=== PATIENT | female | born 1945 | race Caucasian/White ===

== ENCOUNTER 2019-01-20 16:11 | Inpatient (IN) | payer MEDICARE, BC ==
[~2019-01-20] VITALS: Ht 160 cm; Wt 56.7 kg
--- NOTE | 2019-01-20 16:49 | NUR ---
C/O INCREASED SOB X4 DAYS. HAS BEEN USING HER NEBULIZER AND INHALERS W/O RELIEF. HX COPD. CONNECTED TO MONITORING. AT BEDSIDE. CALL LIGHT IN REACH.
[2019-01-20 17:10] LABS: ALBUMIN 3.7 g/dL (3.4-5.0); ANION GAP 5 mmol/L (5-15); CALCIUM 8.3 mg/dL (8.5-10.1); CHLORIDE 100 mmol/L (98-107); CREATININE 0.61 mg/dL (0.55-1.02)
[2019-01-20 17:12] LABS: BASOPHILS # (AUTO) 0.02 x10^3/uL (0-0.1); BASOPHILS % (AUTO) 1 % (0-1); EOSINOPHILS # (AUTO) 0.01 x10^3/uL (0-0.4); EOSINOPHILS % (AUTO) 0 % (1-7); LYMPHOCYTES # (AUTO) 0.68 x10^3/uL (1-3.4); LYMPHOCYTES % (AUTO) 20 % (22-44); MD NO; MEAN CORPUSCULAR HEMOGLOBIN 31.5 pg (27.0-34.8); MEAN CORPUSCULAR HGB CONC 33.3 g/dL (32.4-35.8); MEAN CORPUSCULAR VOLUME 94.9 fL (80-100); MEAN PLATELET VOLUME 8.3 fL (7.4-10.4); MONOCYTES # (AUTO) 0.47 x10^3/uL (0.2-0.8); MONOCYTES % (AUTO) 14 % (2-9); NEUTROPHILS % (AUTO) 65 % (42-75); PLATELET COUNT 201 x10^3/uL (130-400); RED BLOOD COUNT 4.68 x10^6/uL (3.82-5.3); RED CELL DISTRIBUTION WIDTH 13.9 % (9.6-15.2)
--- NOTE | 2019-01-20 17:21 | NUR ---
ALL RESULTS ARE BACK AT THIS TIME. CHART UP FOR RECHECK.
[2019-01-20] MEDS ORDERED: ACETAMINOPHEN 500 MG TABLET ONE (17:36)
--- NOTE | 2019-01-20 17:40 | NUR ---
MEDS ADMINISTERED PER MAY. PT RESTING COMFORTABLY ON [facility] [place]. [place].
[2019-01-20] MEDS ORDERED: ALBUTEROL/IPRATROPIUM 2.5MG/0.5MG, 3 ML NPPB ONE (18:00)
[2019-01-20] MEDS ORDERED: SODIUM CHLORIDE 0.9% 1,000ML IVBOLUS ONE (18:00)
[2019-01-20] MEDS ORDERED: ACETAMINOPHEN 500 MG TABLET PO ONE (18:00)
[2019-01-20] MEDS ORDERED: ALBUTEROL/IPRATROPIUM 2.5MG/0.5MG, 3 ML ONE (18:19)
--- NOTE | 2019-01-20 18:21 | NUR ---
TASK RN: STARTING PIV NOW, MEDICATING PT PER EMAR. RT AT BEDSIDE. CONNECTED TO MONITOR. VSS.
[2019-01-20 19:15] LABS: RAPID INFLUENZA A Negative (Negative); RAPID INFLUENZA B POSITIVE (Negative)
--- NOTE | 2019-01-20 19:32 | NUR ---
PT STATES SHE IS TOO SOB TO AMBULATED TO RESTROOM, SO SHE WAS WHEELED TO RESTROOM AND BACK TO BED. OXYGEN LEVELS AT 95%.
--- NOTE | 2019-01-20 19:55 | NUR ---
REPORT GIVEN TO LIVIA MACE
[2019-01-20] MEDS ORDERED: ONDANSETRON 2MG/ML, 2ML IVPush ONE (20:00)
[2019-01-20] MEDS ORDERED: SODIUM CHLORIDE 0.9%, 500ML IVBOLUS ONE (20:00)
[2019-01-20] MEDS ORDERED: OSELTAMIVIR 75 MG CAPSULE PO ONE (20:00)
[2019-01-20 20:29] VITALS: BP 120/69
[2019-01-20] MEDS ORDERED: ONDANSETRON ODT 4 MG PO PRN (20:30)
[2019-01-20] MEDS ORDERED: TEMAZEPAM 15 MG CAPSULE PO PRN (20:30)
[2019-01-20] MEDS ORDERED: DOCUSATE 100 MG CAPSULE PO PRN (20:30)
[2019-01-20] MEDS ORDERED: ENALAPRILAT 1.25 MG/ML, 2ML IVPush PRN (20:30)
[2019-01-20] MEDS ORDERED: ENOXAPARIN 40 MG/0.4 ML SQ SCH (20:30)
[2019-01-20] MEDS ORDERED: LIDODERM 5% PATCH TD PRN (20:30)
[2019-01-20] MEDS ORDERED: ACETAMINOPHEN 325 MG TABLET PO PRN (20:30)
[2019-01-20 20:31] VITALS: BP 120/69
[2019-01-20] MEDS ORDERED: ALBUTEROL/IPRATROPIUM 2.5MG/0.5MG, 3 ML NPPB PRN (22:00)
[2019-01-20] MEDS ORDERED: MONT10TA6 PO (22:03)
[2019-01-20] MEDS ORDERED: DESL5TAB PO (22:04)
[2019-01-20] MEDS ORDERED: PRAV40TA2 PO (22:04)
[2019-01-20] MEDS ORDERED: CLON0.5T PO (22:05)
[2019-01-20] MEDS ORDERED: ALPR0.25 PO (22:07)
[2019-01-20] MEDS ORDERED: ASPI-515 PO (22:08)
[2019-01-20] MEDS ORDERED: LEVA15HF4 INH (22:10)
[2019-01-20] MEDS ORDERED: LEVALBUTEROL TARTRATE 45 MCG INH SCH (23:00)
[2019-01-20] MEDS: ASPIRIN 81 MG TABLET EC PO SCH (23:13)
[2019-01-20] MEDS: OSELTAMIVIR 75 MG CAPSULE PO SCH (23:14)
[2019-01-20] MEDS: PRAVASTATIN 40 MG TABLET PO SCH (23:14)
[2019-01-20] MEDS: MONTELUKAST 10 MG TABLET PO SCH (23:14)
[2019-01-20] MEDS: LORATADINE 10 MG TABLET PO SCH (23:17)
[2019-01-20] MEDS: ALBUTEROL/IPRATROPIUM 2.5MG/0.5MG, 3 ML NPPB SCH (23:50)
[2019-01-21 01:49] VITALS: BP 105/67
[2019-01-21 06:28] LABS: MEAN CORPUSCULAR HEMOGLOBIN 30.9 pg (27.0-34.8); MEAN CORPUSCULAR HGB CONC 33.1 g/dL (32.4-35.8); MEAN CORPUSCULAR VOLUME 93.4 fL (80-100); MEAN PLATELET VOLUME 8.1 fL (7.4-10.4); PLATELET COUNT 183 x10^3/uL (130-400); RED BLOOD COUNT 4.48 x10^6/uL (3.82-5.3); RED CELL DISTRIBUTION WIDTH 13.2 % (9.6-15.2)
[2019-01-21 06:37] LABS: CALCIUM 8.2 mg/dL (8.5-10.1); CHLORIDE 105 mmol/L (98-107)
[2019-01-21 06:40] LABS: ANION GAP 4 mmol/L (5-15); CREATININE 0.54 mg/dL (0.55-1.02)
[2019-01-21 06:58] LABS: BASOPHILS # (AUTO) 0.01 x10^3/uL (0-0.1); BASOPHILS % (AUTO) 0 % (0-1); EOSINOPHILS % (AUTO) 0 % (1-7); LYMPHOCYTES % (AUTO) 30 % (22-44); MD SCAN; MONOCYTES # (AUTO) 0.28 x10^3/uL (0.2-0.8); MONOCYTES % (AUTO) 14 % (2-9); NEUTROPHILS % (AUTO) 56 % (42-75)
[2019-01-21 07:56] VITALS: BP 109/72
[2019-01-21] MEDS ORDERED: LIDODERM REMOVE PATCH NOTE XX SCH (08:30)
[2019-01-21] MEDS: ALBUTEROL/IPRATROPIUM 2.5MG/0.5MG, 3 ML NPPB SCH ×2 (08:53→14:35)
[2019-01-21] MEDS: BUDESONIDE 0.5 MG/2 ML INHA NPPB SCH (09:00)
[2019-01-21] MEDS ORDERED: OSELTAMIVIR 75 MG CAPSULE PO SCH (09:00)
[2019-01-21] MEDS: SODIUM CHLORIDE 0.9% 1,000 ML IV SCH (09:25)
[2019-01-21] MEDS: ASPIRIN 81 MG TABLET EC PO SCH ×2 (09:25→21:17)
[2019-01-21] MEDS: OSELTAMIVIR 75 MG CAPSULE PO SCH ×2 (09:25→21:17)
[2019-01-21] MEDS: HEPARIN 5,000 UNITS/ML, 1ML SQ SCH ×2 (09:28→21:17)
[2019-01-21] MEDS: GUAIFENESIN 200 MG TABLET PO SCH ×3 (12:24→21:17)
[2019-01-21 16:18] VITALS: BP 120/77
[2019-01-21] MEDS ORDERED: HALOPERIDOL 2 MG TABLET PO ONE (18:00)
[2019-01-21] MEDS: NICOTINE 7 MG/24 HR PATCH.TD24 TD SCH (18:03)
[2019-01-21 19:48] VITALS: BP 124/76
[2019-01-21] MEDS: PRAVASTATIN 40 MG TABLET PO SCH (21:16)
[2019-01-21] MEDS: LORATADINE 10 MG TABLET PO SCH (21:17)
[2019-01-21] MEDS: MONTELUKAST 10 MG TABLET PO SCH (21:17)
[2019-01-21 21:25] LABS: CLOSTRIDIUM DIFFICILE ANTIGEN NEGATIVE; CLOSTRIDIUM DIFFICILE TOXIN NEGATIVE (Negative)
[2019-01-21] MEDS: ACETAMINOPHEN 325 MG TABLET PO PRN (23:36)
[2019-01-22] MEDS: SODIUM CHLORIDE 0.9% 1,000 ML IV SCH (02:56)
[2019-01-22] MEDS: IPRATROPIUM 0.5 MG/2.5 ML INHA NPPB SCH ×4 (03:00→19:43)
[2019-01-22 03:09] VITALS: BP 133/84
[2019-01-22] MEDS: GUAIFENESIN 200 MG TABLET PO SCH ×4 (06:00→21:26)
[2019-01-22] MEDS: BUDESONIDE 0.5 MG/2 ML INHA NPPB SCH ×3 (07:48→19:44)
[2019-01-22] MEDS ORDERED: HALOPERIDOL 2 MG TABLET PO PRN (09:00)
[2019-01-22 09:21] VITALS: BP 135/82
[2019-01-22] MEDS: CARVEDILOL 3.125 MG TABLET PO SCH ×2 (09:36→17:56)
[2019-01-22] MEDS: ASPIRIN 81 MG TABLET EC PO SCH ×2 (09:37→21:27)
[2019-01-22] MEDS: HEPARIN 5,000 UNITS/ML, 1ML SQ SCH ×2 (09:37→21:25)
[2019-01-22] MEDS: OSELTAMIVIR 75 MG CAPSULE PO SCH ×2 (09:37→21:26)
[2019-01-22] MEDS: ACETAMINOPHEN 325 MG TABLET PO PRN ×2 (10:53→22:00)
[2019-01-22] MEDS ORDERED: TIOT18CA INH (11:01)
[2019-01-22 13:54] VITALS: BP 184/99
[2019-01-22] MEDS: CEFTRIAXONE PMX 2GM/50ML 50 ML IV SCH (14:03)
[2019-01-22] MEDS: NICOTINE 7 MG/24 HR PATCH.TD24 TD SCH (17:57)
[2019-01-22 20:21] VITALS: BP 154/83
[2019-01-22] MEDS: PRAVASTATIN 40 MG TABLET PO SCH (21:26)
[2019-01-22] MEDS: MONTELUKAST 10 MG TABLET PO SCH (21:26)
[2019-01-22] MEDS: LORATADINE 10 MG TABLET PO SCH (21:26)
[2019-01-23] MEDS: SODIUM CHLORIDE 0.9% 1,000 ML IV SCH (00:04)
[2019-01-23 01:59] VITALS: BP 151/78
[2019-01-23] MEDS: IPRATROPIUM 0.5 MG/2.5 ML INHA NPPB SCH ×5 (02:22→21:52)
[2019-01-23 05:22] LABS: ANION GAP 7 mmol/L (5-15); CALCIUM 7.5 mg/dL (8.5-10.1); CHLORIDE 97 mmol/L (98-107); CREATININE 0.39 mg/dL (0.55-1.02)
[2019-01-23 05:46] VITALS: BP 149/80
[2019-01-23] MEDS: GUAIFENESIN 200 MG TABLET PO SCH ×6 (05:50→20:33)
[2019-01-23] MEDS: CARVEDILOL 3.125 MG TABLET PO SCH (05:50)
[2019-01-23] MEDS: ACETAMINOPHEN 325 MG TABLET PO PRN ×2 (06:13→20:32)
[2019-01-23] MEDS: BUDESONIDE 0.5 MG/2 ML INHA NPPB SCH ×2 (06:16→21:00)
[2019-01-23 06:24] VITALS: BP 119/75
[2019-01-23] MEDS: HEPARIN 5,000 UNITS/ML, 1ML SQ SCH ×2 (08:55→20:32)
[2019-01-23] MEDS: ASPIRIN 81 MG TABLET EC PO SCH ×2 (08:55→20:29)
[2019-01-23] MEDS: OSELTAMIVIR 75 MG CAPSULE PO SCH ×2 (08:55→20:30)
[2019-01-23] MEDS: DOXYCYCLINE 100MG TABLET PO SCH ×2 (09:30→20:32)
[2019-01-23] MEDS: CEFTRIAXONE PMX 2GM/50ML 50 ML IV SCH (14:06)
[2019-01-23 14:10] VITALS: BP 105/68
[2019-01-23] MEDS: LEVALBUTEROL 1.25 MG NPPB PRN (14:58)
[2019-01-23] MEDS: ALBUTEROL/IPRATROPIUM 2.5MG/0.5MG, 3 ML HHN SCH ×2 (16:30→22:30)
[2019-01-23 18:30] VITALS: BP 146/78
[2019-01-23] MEDS: NICOTINE 7 MG/24 HR PATCH.TD24 TD SCH (18:33)
[2019-01-23] MEDS: CARVEDILOL 6.25 MG TABLET PO SCH (18:33)
[2019-01-23] MEDS: MONTELUKAST 10 MG TABLET PO SCH (20:30)
[2019-01-23] MEDS: LORATADINE 10 MG TABLET PO SCH (20:30)
[2019-01-23] MEDS: PRAVASTATIN 40 MG TABLET PO SCH (20:30)
[2019-01-24 03:13] VITALS: BP 133/83
[2019-01-24] MEDS: ALBUTEROL/IPRATROPIUM 2.5MG/0.5MG, 3 ML HHN SCH ×4 (04:24→22:30)
[2019-01-24 06:11] LABS: BASOPHILS # (AUTO) 0.01 x10^3/uL (0-0.1); BASOPHILS % (AUTO) 0 % (0-1); EOSINOPHILS # (AUTO) 0.04 x10^3/uL (0-0.4); EOSINOPHILS % (AUTO) 1 % (1-7); LYMPHOCYTES # (AUTO) 0.85 x10^3/uL (1-3.4); LYMPHOCYTES % (AUTO) 15 % (22-44); MD NO; MEAN CORPUSCULAR HEMOGLOBIN 31.3 pg (27.0-34.8); MEAN CORPUSCULAR HGB CONC 33.1 g/dL (32.4-35.8); MEAN CORPUSCULAR VOLUME 94.6 fL (80-100); MEAN PLATELET VOLUME 8.1 fL (7.4-10.4); MONOCYTES # (AUTO) 0.62 x10^3/uL (0.2-0.8); MONOCYTES % (AUTO) 11 % (2-9); NEUTROPHILS % (AUTO) 74 % (42-75); PLATELET COUNT 160 x10^3/uL (130-400); RED CELL DISTRIBUTION WIDTH 13.4 % (9.6-15.2)
[2019-01-24 06:34] VITALS: BP 115/64
[2019-01-24] MEDS: BUDESONIDE 0.5 MG/2 ML INHA NPPB SCH ×2 (09:30→20:46)
[2019-01-24] MEDS: IPRATROPIUM 0.5 MG/2.5 ML INHA NPPB SCH ×3 (09:30→20:46)
[2019-01-24] MEDS: OSELTAMIVIR 75 MG CAPSULE PO SCH ×2 (09:58→21:54)
[2019-01-24] MEDS ORDERED: BUDE10.2 INH (10:06)
[2019-01-24] MEDS ORDERED: TIOT18CA INH (10:06)
[2019-01-24] MEDS: CARVEDILOL 6.25 MG TABLET PO SCH ×2 (10:53→17:50)
[2019-01-24] MEDS: GUAIFENESIN 200 MG TABLET PO SCH ×5 (10:53→21:54)
[2019-01-24] MEDS: ASPIRIN 81 MG TABLET EC PO SCH ×2 (10:53→21:53)
[2019-01-24] MEDS: DOXYCYCLINE 100MG TABLET PO SCH ×2 (10:53→21:00)
[2019-01-24] MEDS: HEPARIN 5,000 UNITS/ML, 1ML SQ SCH ×2 (10:54→21:53)
[2019-01-24] MEDS: LEVALBUTEROL 1.25 MG NPPB PRN ×2 (11:25→15:58)
[2019-01-24] MEDS: NYSTATIN 500,000 UNITS/5 ML UDC PO SCH ×3 (12:31→21:00)
[2019-01-24] MEDS: CEFTRIAXONE PMX 2GM/50ML 50 ML IV SCH (12:32)
[2019-01-24 12:51] VITALS: BP 124/81
[2019-01-24] MEDS: NICOTINE 7 MG/24 HR PATCH.TD24 TD SCH (17:48)
[2019-01-24 18:46] VITALS: BP 119/70
[2019-01-24] MEDS: PRAVASTATIN 40 MG TABLET PO SCH (21:54)
[2019-01-24] MEDS: MONTELUKAST 10 MG TABLET PO SCH (21:54)
[2019-01-24] MEDS: LORATADINE 10 MG TABLET PO SCH (21:54)
[2019-01-24] MEDS: ACETAMINOPHEN 325 MG TABLET PO PRN (22:12)
[2019-01-25 00:21] VITALS: BP 119/76
[2019-01-25] MEDS: ALBUTEROL/IPRATROPIUM 2.5MG/0.5MG, 3 ML HHN SCH (02:59)
[2019-01-25] MEDS: NYSTATIN 500,000 UNITS/5 ML UDC PO SCH ×4 (04:16→21:00)
[2019-01-25] MEDS: DOXYCYCLINE 100MG TABLET PO SCH ×2 (04:16→21:00)
[2019-01-25 07:42] VITALS: BP 183/99
[2019-01-25 07:57] VITALS: BP 151/97
[2019-01-25] MEDS: BUDESONIDE 0.5 MG/2 ML INHA NPPB SCH (08:25)
[2019-01-25] MEDS: IPRATROPIUM 0.5 MG/2.5 ML INHA NPPB SCH ×3 (08:25→21:00)
[2019-01-25] MEDS: ENOXAPARIN 40 MG/0.4 ML SQ SCH (11:34)
[2019-01-25] MEDS: OSELTAMIVIR 75 MG CAPSULE PO SCH ×2 (11:34→21:00)
[2019-01-25] MEDS: AMLODIPINE 5 MG TABLET PO SCH ×2 (11:34→22:50)
[2019-01-25] MEDS: GUAIFENESIN 200 MG TABLET PO SCH ×4 (11:37→21:00)
[2019-01-25] MEDS: ASPIRIN 81 MG TABLET EC PO SCH ×2 (12:18→22:50)
[2019-01-25 12:46] VITALS: BP 153/93
[2019-01-25] MEDS: CEFTRIAXONE PMX 2GM/50ML 50 ML IV SCH (13:58)
[2019-01-25] MEDS ORDERED: CARVEDILOL 12.5 MG TABLET PO SCH (18:00)
[2019-01-25] MEDS: NICOTINE 7 MG/24 HR PATCH.TD24 TD SCH (18:20)
[2019-01-25 20:00] VITALS: BP 134/87
[2019-01-25] MEDS: MONTELUKAST 10 MG TABLET PO SCH (21:00)
[2019-01-25] MEDS: LORATADINE 10 MG TABLET PO SCH (22:50)
[2019-01-25] MEDS: PRAVASTATIN 40 MG TABLET PO SCH (22:50)
[2019-01-26] MEDS ORDERED: OMNIPAQUE 350 MG/ML, 100ML BOTTLE ONE (00:09)
[2019-01-26] MEDS: ACETAMINOPHEN 325 MG TABLET PO PRN ×2 (00:43→10:24)
[2019-01-26] MEDS: IPRATROPIUM 0.5 MG/2.5 ML INHA NPPB SCH ×4 (03:00→21:36)
[2019-01-26] MEDS: NYSTATIN 500,000 UNITS/5 ML UDC PO SCH ×4 (03:03→21:00)
[2019-01-26] MEDS: DOXYCYCLINE 100MG TABLET PO SCH ×2 (10:03→20:33)
[2019-01-26 10:20] VITALS: BP 146/83
[2019-01-26] MEDS: ENOXAPARIN 40 MG/0.4 ML SQ SCH (10:24)
[2019-01-26] MEDS: CEFDINIR 300 MG CAPSULE PO SCH ×2 (10:24→22:54)
[2019-01-26] MEDS: AMLODIPINE 5 MG TABLET PO SCH ×2 (10:24→22:53)
[2019-01-26] MEDS: GUAIFENESIN 200 MG TABLET PO SCH ×4 (10:24→21:00)
[2019-01-26] MEDS: ASPIRIN 81 MG TABLET EC PO SCH ×2 (10:24→22:53)
[2019-01-26 10:47] LABS: ALANINE AMINOTRANSFERASE 89 U/L (12-78); ALBUMIN 2.9 g/dL (3.4-5.0); CALCIUM 8.6 mg/dL (8.5-10.1); CHLORIDE 99 mmol/L (98-107); CREATININE 0.32 mg/dL (0.55-1.02)
[2019-01-26 10:49] LABS: ALKALINE PHOSPHATASE 74 U/L (45-117); BILIRUBIN,TOTAL 0.4 mg/dL (0.2-1.0)
[2019-01-26 10:59] LABS: ANION GAP 3 mmol/L (5-15)
[2019-01-26] MEDS: [UNRECOGNIZED DRUG - OTHER] NPPB SCH (17:00)
[2019-01-26] MEDS: NICOTINE 7 MG/24 HR PATCH.TD24 TD SCH (17:42)
[2019-01-26] MEDS: CARVEDILOL 25 MG TABLET PO SCH (17:42)
[2019-01-26 21:30] VITALS: BP 94/59
[2019-01-26] MEDS: MONTELUKAST 10 MG TABLET PO SCH (22:53)
[2019-01-26] MEDS: PRAVASTATIN 40 MG TABLET PO SCH (22:54)
[2019-01-26] MEDS: LORATADINE 10 MG TABLET PO SCH (22:54)
[2019-01-26] MEDS: MIRTAZAPINE 15 MG TABLET PO SCH (22:54)
[2019-01-27] MEDS: IPRATROPIUM 0.5 MG/2.5 ML INHA NPPB SCH ×4 (03:13→21:00)
[2019-01-27] MEDS: [UNRECOGNIZED DRUG - OTHER] NPPB SCH ×4 (03:13→18:30)
[2019-01-27 08:50] VITALS: BP 128/81
[2019-01-27] MEDS: NYSTATIN 500,000 UNITS/5 ML UDC PO SCH ×5 (09:52→21:28)
[2019-01-27] MEDS: DOXYCYCLINE 100MG TABLET PO SCH ×2 (09:52→20:45)
[2019-01-27] MEDS: AMLODIPINE 5 MG TABLET PO SCH (09:55)
[2019-01-27] MEDS: CEFDINIR 300 MG CAPSULE PO SCH ×2 (09:55→21:53)
[2019-01-27] MEDS: ASPIRIN 81 MG TABLET EC PO SCH ×2 (09:56→21:54)
[2019-01-27] MEDS: GUAIFENESIN 200 MG TABLET PO SCH ×4 (09:56→20:43)
[2019-01-27] MEDS: CARVEDILOL 25 MG TABLET PO SCH (09:56)
[2019-01-27] MEDS: ENOXAPARIN 40 MG/0.4 ML SQ SCH (10:00)
[2019-01-27 11:09] LABS: ALANINE AMINOTRANSFERASE 91 U/L (12-78); ALBUMIN 2.9 g/dL (3.4-5.0); CALCIUM 8.7 mg/dL (8.5-10.1); CREATININE 0.52 mg/dL (0.55-1.02)
[2019-01-27 11:11] LABS: ALKALINE PHOSPHATASE 80 U/L (45-117); BILIRUBIN,TOTAL 0.3 mg/dL (0.2-1.0); TOTAL PROTEIN 6.8 g/dL (6.4-8.2)
[2019-01-27 11:21] LABS: ANION GAP 2 mmol/L (5-15); CHLORIDE 99 mmol/L (98-107)
[2019-01-27 12:11] VITALS: BP 78/54
[2019-01-27 12:30] VITALS: BP 95/61
[2019-01-27] MEDS ORDERED: SODIUM CHLORIDE 0.9% 1,000 ML IV SCH (12:30)
[2019-01-27 14:55] VITALS: BP 108/69
[2019-01-27] MEDS: CARVEDILOL 12.5 MG TABLET PO SCH (18:24)
[2019-01-27] MEDS: NICOTINE 7 MG/24 HR PATCH.TD24 TD SCH (18:25)
[2019-01-27] MEDS ORDERED: [UNRECOGNIZED DRUG - OTHER] PO PRN (18:30)
[2019-01-27 20:09] VITALS: BP 115/70
[2019-01-27] MEDS: [UNRECOGNIZED DRUG - OTHER] PO PRN (20:43)
[2019-01-27] MEDS: ACETAMINOPHEN 325 MG TABLET PO PRN (20:43)
[2019-01-27] MEDS: BUDESONIDE 0.5 MG/2 ML INHA INH SCH (21:00)
[2019-01-27] MEDS: MONTELUKAST 10 MG TABLET PO SCH (21:53)
[2019-01-27] MEDS: MIRTAZAPINE 15 MG TABLET PO SCH (21:53)
[2019-01-27] MEDS: LORATADINE 10 MG TABLET PO SCH (21:54)
[2019-01-27] MEDS: PRAVASTATIN 40 MG TABLET PO SCH (21:54)
[2019-01-28] MEDS: [UNRECOGNIZED DRUG - OTHER] NPPB SCH ×4 (03:00→20:34)
[2019-01-28] MEDS: IPRATROPIUM 0.5 MG/2.5 ML INHA NPPB SCH ×4 (03:00→20:34)
[2019-01-28 06:22] LABS: ANION GAP 5 mmol/L (5-15); CALCIUM 8.7 mg/dL (8.5-10.1); CHLORIDE 98 mmol/L (98-107)
[2019-01-28 06:25] LABS: ALANINE AMINOTRANSFERASE 82 U/L (12-78); ALKALINE PHOSPHATASE 80 U/L (45-117); BILIRUBIN,TOTAL 0.4 mg/dL (0.2-1.0)
[2019-01-28] MEDS: GUAIFENESIN 200 MG TABLET PO SCH ×4 (07:23→21:02)
[2019-01-28] MEDS: DOXYCYCLINE 100MG TABLET PO SCH ×2 (07:23→21:02)
[2019-01-28] MEDS: BUDESONIDE 0.5 MG/2 ML INHA INH SCH ×2 (09:00→20:34)
[2019-01-28] MEDS: NYSTATIN 500,000 UNITS/5 ML UDC PO SCH ×4 (09:27→23:27)
[2019-01-28 09:42] VITALS: BP 138/87
[2019-01-28] MEDS: CARVEDILOL 12.5 MG TABLET PO SCH ×2 (09:54→17:18)
[2019-01-28] MEDS: CEFDINIR 300 MG CAPSULE PO SCH ×2 (09:54→21:41)
[2019-01-28] MEDS: ASPIRIN 81 MG TABLET EC PO SCH ×2 (09:54→21:40)
[2019-01-28] MEDS: ENOXAPARIN 40 MG/0.4 ML SQ SCH (09:55)
[2019-01-28] MEDS: [UNRECOGNIZED DRUG - OTHER] PO PRN ×2 (09:59→21:42)
[2019-01-28 12:59] VITALS: BP 137/81
[2019-01-28] MEDS: ACETAMINOPHEN 325 MG TABLET PO PRN ×2 (13:36→21:50)
[2019-01-28] MEDS: NICOTINE 7 MG/24 HR PATCH.TD24 TD SCH (17:20)
[2019-01-28 19:19] VITALS: BP 119/75
[2019-01-28] MEDS: MIRTAZAPINE 15 MG TABLET PO SCH (21:41)
[2019-01-28] MEDS: LORATADINE 10 MG TABLET PO SCH (21:41)
[2019-01-28] MEDS: MONTELUKAST 10 MG TABLET PO SCH (21:41)
[2019-01-28] MEDS: PRAVASTATIN 40 MG TABLET PO SCH (21:41)
[2019-01-29] MEDS: [UNRECOGNIZED DRUG - OTHER] NPPB SCH ×4 (02:29→22:01)
[2019-01-29] MEDS: IPRATROPIUM 0.5 MG/2.5 ML INHA NPPB SCH ×4 (02:30→22:02)
[2019-01-29 06:35] VITALS: BP 145/84
[2019-01-29] MEDS: BUDESONIDE 0.5 MG/2 ML INHA INH SCH ×2 (09:00→22:01)
[2019-01-29 09:32] LABS: ALBUMIN 3.1 g/dL (3.4-5.0); ANION GAP 2 mmol/L (5-15); CALCIUM 8.8 mg/dL (8.5-10.1); CHLORIDE 98 mmol/L (98-107)
[2019-01-29 09:36] LABS: ALANINE AMINOTRANSFERASE 69 U/L (12-78); ALKALINE PHOSPHATASE 73 U/L (45-117); BILIRUBIN,TOTAL 0.5 mg/dL (0.2-1.0)
[2019-01-29] MEDS: [UNRECOGNIZED DRUG - OTHER] PO PRN ×3 (09:56→21:04)
[2019-01-29] MEDS: DOXYCYCLINE 100MG TABLET PO SCH ×2 (10:12→19:30)
[2019-01-29] MEDS: NYSTATIN 500,000 UNITS/5 ML UDC PO SCH ×4 (10:12→22:44)
[2019-01-29] MEDS: CEFDINIR 300 MG CAPSULE PO SCH ×2 (10:12→21:03)
[2019-01-29] MEDS: GUAIFENESIN 200 MG TABLET PO SCH ×4 (10:13→21:00)
[2019-01-29] MEDS: ASPIRIN 81 MG TABLET EC PO SCH ×2 (10:14→21:03)
[2019-01-29] MEDS: ENOXAPARIN 40 MG/0.4 ML SQ SCH (10:14)
[2019-01-29] MEDS ORDERED: POTASSIUM CHLORIDE 20 MEQ TAB.ER.PRT PO ONE (15:00)
[2019-01-29] MEDS ORDERED: FUROSEMIDE 20 MG/2 ML IV ONE (15:00)
[2019-01-29 15:55] VITALS: BP 131/77
[2019-01-29] MEDS: POTASSIUM CHLORIDE 20 MEQ TAB.ER.PRT PO SCH (16:21)
[2019-01-29] MEDS ORDERED: POTASSIUM CHLORIDE 20 MEQ TAB.ER.PRT PO SCH (17:00)
[2019-01-29] MEDS ORDERED: FUROSEMIDE 40 MG/4 ML IV SCH (17:00)
[2019-01-29 17:45] VITALS: BP 124/70
[2019-01-29] MEDS: CARVEDILOL 25 MG TABLET PO SCH (17:45)
[2019-01-29] MEDS: NICOTINE 7 MG/24 HR PATCH.TD24 TD SCH (17:45)
[2019-01-29 18:48] VITALS: BP 91/62
[2019-01-29] MEDS: LORATADINE 10 MG TABLET PO SCH (21:03)
[2019-01-29] MEDS: PRAVASTATIN 40 MG TABLET PO SCH (21:03)
[2019-01-29] MEDS: MONTELUKAST 10 MG TABLET PO SCH (21:03)
[2019-01-29] MEDS: MIRTAZAPINE 15 MG TABLET PO SCH (21:04)
[2019-01-30] MEDS: [UNRECOGNIZED DRUG - OTHER] NPPB SCH ×5 (03:17→23:15)
[2019-01-30] MEDS: IPRATROPIUM 0.5 MG/2.5 ML INHA NPPB SCH ×5 (03:17→23:15)
[2019-01-30 07:10] VITALS: BP 143/93
[2019-01-30] MEDS: POTASSIUM CHLORIDE 20 MEQ TAB.ER.PRT PO SCH ×2 (07:15→18:37)
[2019-01-30] MEDS ORDERED: FUROSEMIDE 20 MG/2 ML IV SCH ×2 (07:30→17:00)
[2019-01-30] MEDS: BUDESONIDE 0.5 MG/2 ML INHA INH SCH ×3 (07:40→23:15)
[2019-01-30] MEDS: ASPIRIN 81 MG TABLET EC PO SCH ×2 (09:06→21:02)
[2019-01-30] MEDS: GUAIFENESIN 200 MG TABLET PO SCH ×4 (09:07→21:02)
[2019-01-30] MEDS: [UNRECOGNIZED DRUG - OTHER] PO PRN ×2 (09:07→11:09)
[2019-01-30] MEDS: CARVEDILOL 25 MG TABLET PO SCH ×2 (09:07→18:37)
[2019-01-30] MEDS: ENOXAPARIN 40 MG/0.4 ML SQ SCH (11:09)
[2019-01-30] MEDS: NYSTATIN 500,000 UNITS/5 ML UDC PO SCH ×3 (11:10→20:58)
[2019-01-30 11:12] LABS: ALBUMIN 3.1 g/dL (3.4-5.0); ANION GAP 3 mmol/L (5-15); CALCIUM 8.8 mg/dL (8.5-10.1); CHLORIDE 98 mmol/L (98-107)
[2019-01-30 11:17] LABS: ALANINE AMINOTRANSFERASE 55 U/L (12-78); ALKALINE PHOSPHATASE 70 U/L (45-117); BILIRUBIN,TOTAL 0.4 mg/dL (0.2-1.0); CREATININE 0.47 mg/dL (0.55-1.02); TOTAL PROTEIN 7.2 g/dL (6.4-8.2)
[2019-01-30 14:22] VITALS: BP 104/68
[2019-01-30] MEDS: NICOTINE 7 MG/24 HR PATCH.TD24 TD SCH (18:37)
[2019-01-30 20:22] VITALS: BP 90/57
[2019-01-30] MEDS: LORATADINE 10 MG TABLET PO SCH (21:01)
[2019-01-30] MEDS: PRAVASTATIN 40 MG TABLET PO SCH (21:02)
[2019-01-30] MEDS: MONTELUKAST 10 MG TABLET PO SCH (21:02)
[2019-01-30] MEDS: MIRTAZAPINE 15 MG TABLET PO SCH (21:02)
[2019-01-31] MEDS: IPRATROPIUM 0.5 MG/2.5 ML INHA NPPB SCH ×2 (02:22→09:30)
[2019-01-31] MEDS: [UNRECOGNIZED DRUG - OTHER] NPPB SCH ×3 (02:22→14:57)
[2019-01-31] MEDS: GUAIFENESIN 200 MG TABLET PO SCH ×2 (06:00→11:51)
[2019-01-31] MEDS: CARVEDILOL 25 MG TABLET PO SCH (06:00)
[2019-01-31 08:36] VITALS: BP 118/78
[2019-01-31] MEDS: ASPIRIN 81 MG TABLET EC PO SCH (08:57)
[2019-01-31] MEDS: POTASSIUM CHLORIDE 20 MEQ TAB.ER.PRT PO SCH (08:57)
[2019-01-31] MEDS: BUDESONIDE 0.5 MG/2 ML INHA INH SCH (09:30)
[2019-01-31] MEDS: ENOXAPARIN 40 MG/0.4 ML SQ SCH (11:51)
[2019-01-31] MEDS ORDERED: PRED20TA PO (12:35)
[2019-01-31] MEDS ORDERED: GUAI200T37 PO (12:35)
[2019-01-31] MEDS ORDERED: MIRT-34 PO (12:35)
[2019-01-31] MEDS ORDERED: CARV25TA12 PO (12:35)
[2019-01-31 13:37] VITALS: BP 129/75
[2019-02-01] MEDS ORDERED: POTASSIUM CHLORIDE 20 MEQ TAB.ER.PRT PO SCH (09:00)
== END 2019-01-31 15:38 | disposition hospice, home (50) | DRG 193 ==
LOC: ED 17:17 → EDIP 20:00 → 4WST 20:26
PROVIDERS: ADMIT Family Medicine; ATTEND Internal Medicine
DX: J10.1 Influenza due to other identified influenza virus with other respiratory manifestations (principal); J96.21 Acute and chronic respiratory failure with hypoxia; E87.3 Alkalosis; G61.81 Chronic inflammatory demyelinating polyneuritis; I47.2 Ventricular tachycardia; D89.9 Disorder involving the immune mechanism, unspecified; Z66 Do not resuscitate; E78.5 Hyperlipidemia, unspecified; E86.0 Dehydration; F10.10 Alcohol abuse, uncomplicated; F13.90 Sedative, hypnotic, or anxiolytic use, unspecified, uncomplicated; F17.200 Nicotine dependence, unspecified, uncomplicated; F32.9 Major depressive disorder, single episode, unspecified; F41.9 Anxiety disorder, unspecified; I36.1 Nonrheumatic tricuspid (valve) insufficiency; J43.9 Emphysema, unspecified; Z51.5 Encounter for palliative care; Z82.49 Family history of ischemic heart disease and other diseases of the circulatory system; Z86.19 Personal history of other infectious and parasitic diseases; Z71.6 Tobacco abuse counseling; Z99.81 Dependence on supplemental oxygen; Z82.3 Family history of stroke
CPT/HCPCS: 36415; 36600; 71045; 71260; 80048; 80053; 82040; 82803; 83735; 84132; 85025; 85379; 87324; 87400; 93005; 93306; 94640; 96360; G0378; J0696; J1644; J1650; J7620; J7626; J7644; Q9967; J1940; J7030; J7512